=== PATIENT | male | born 1955 | race Caucasian/White ===

== ENCOUNTER 2020-06-19 07:20 | Emergency (ER) | payer BC, SELFPAY ==
[2020-06-19] VITALS (9 sets, daily range): BP systolic 126–171; BP diastolic 70–96; PULSE 61–69; RESP 18; TEMP 36.3; O2SAT 96–99
--- NOTE | ~2020-06-19 | CT_ITS ---
EXAMINATION: CT abdomen pelvis w con DATE: 06/19/2020 09:18 INDICATION: Abdominal pain and vomiting. One day after prostate biopsy. TECHNIQUE: Computed tomography (CT) of the abdomen and pelvis was performed with 100 mL Omnipaque 350 intravenous contrast. Automated exposure control and iterative reconstruction technique were employe d. The dose-length product was 351.91 mGy-cm. COMPARISON: None. FINDINGS: The visualized portions of the lung bases demonstrate minimal atelectasis. A calcified righ t lung nodule is consistent with old granulomatous disease. No pleural effusion. The heart size is no rmal. No pericardial effusion. There is a small sliding hiatal hernia. The liver, gallbladder, spleen , pancreas, and right adrenal gland are normal. There is a 1.4 cm mass in left adrenal gland measurin g soft tissue attenuation. There are cysts in the kidneys measuring up to 1.7 cm on the left. There a re two 2 mm stones in right kidney. There is a 3 mm stone in left kidney. The prostate is moderately enlarged. There is a small left inguinal hernia containing fat. There is calcified old fat necrosis a djacent to sigmoid colon. There are no dilated loops of bowel. The appendix is normal. There are no p athologically enlarged lymph nodes. There is no free intraperitoneal fluid. There is severe thoracolu mbar spondylosis. IMPRESSION: 1. Small sliding hiatal hernia. 2. 1.4 cm left adrenal mass. In the absence of known malignancy, this finding is likely an adenoma. 3. Small bilateral nonobstructing kidney stones. 4. Small left inguinal hernia containing fat. Reviewed, dictated and finalized at location B. IMPRESSION: 1. Small sliding hiatal hernia. 2. 1.4 cm left adrenal mass. In the absence of known malignancy, this finding i s likely an adenoma. 3. Small bilateral nonobstructing kidney stones. 4. Small left inguinal hernia containing fat.
--- NOTE | 2020-06-19 07:48 | ED.NAVMDI ---
HPI - Nausea/Vomiting/Diarrhea General Chief complaint: Nausea/Vomiting/Diarrhea Stated complaint: nausea,vomiting, chills Time Seen by Provider: 06/19/20 07:48 Source: patient and family Mode of arrival: ambulatory Limitations: no limitations History of Present Illness HPI Narrative: Patient is a 64-year-old male who presents for evaluation of intractable nausea and vomiting. Patient states he had a prostate biopsy yesterday with Dr. Tsai' office, after the procedure, patient started to experience nausea and vomiting on the way home. Patient denying any dysuria or hematuria. Patient was awake for the procedure was done with a rectal approach, patient was given a shot of antibiotic intramuscularly, but denies any other medications. No rash at the site of injection. No fever or chills. Patient reports crampy abdominal pain. He denies any diarrhea. Patient states he has been unable to tolerate any oral intake in the past 20 hours. He denies any weakness, numbness, vision changes. No chest pain, cough or shortness of breath. He denies any other medications. Related Data Allergies Allergy/AdvReac Type Severity Reaction Status Date / Time No Known Allergies Allergy Verified 06/19/20 07:28 Review of Systems Review of Systems: Narrative: CONSTITUTIONAL: Denies fever, chills, or sweats. EYES: Denies visual changes, redness, or discharge. ENT: Denies rhinorrhea, congestion, sore throat, or otalgia. CARDIOVASCULAR: Denies chest pain, palpitations, or edema. RESPIRATORY: Denies cough or dyspnea. GASTROINTESTINAL: Reports abdominal pain, nausea and vomiting GENITOURINARY: Denies dysuria or hematuria. SKIN: Denies rash or itching. MUSCULOSKELETAL: Denies back pain, joint pain, or myalgia. NEUROLOGIC: Denies headache, numbness, or weakness. [facility] [place] Social History Social History Gender identity (if verbalized by the patient): Male Course Vital Signs Vital signs: Vital Signs Temperature 36.3 C L 06/19/20 07:25 Pulse Rate 61 06/19/20 07:25 Respiratory Rate 18 06/19/20 07:25 Blood Pressure 147/76 H 06/19/20 07:25 Pulse Oximetry 98 06/19/20 07:25 Temperature 36.3 C L 06/19/20 07:25 Pulse Rate 69 06/19/20 08:25 Respiratory Rate 18 06/19/20 07:25 Blood Pressure 129/70 06/19/20 11:02 Pulse Oximetry 99 06/19/20 11:02 MDM - Nausea/Vomiting/Diarrhea MDM Narrative Medical decision making narrative: Patient presented for evaluation of nausea and vomiting. The time of assessment, ABCs are intact and vital signs are stable. Laboratory results show mild leukocytosis which may be seen in acute stress reaction from the patient's emesis. No anemia. Mild hypokalemia. Patient was given Zofran, Reglan, IV fluids and had much improvement in his symptoms. He had a CT scan which did not show any acute infectious etiologies or obstruction. I spoke with the urologist office, [place], at this point I do not feel like the intramuscular Rocephin he got prior to the procedure would be causing the vomiting. Patient not having any evidence of urinary tract infection or findings of prostatitis. There is blood on UA post procedure which is expected at this point. Patient and family made aware of left adrenal adenoma which will require monitoring. Otherwise, patient was able to p.o. challenge without recurrent emesis. He states he feels well without other symptoms. Vital signs remained stable. Patient was able to be discharged home with antiemetic advised to return should his symptoms change or recur. Differential Diagnosis Differential diagnosis: Likely food poisoning, gastroenteritis, drug-induced nausea and vomiting and dehydration Medical Records Attestation: I reviewed the patient's medical records. Lab Data Attestation: I reviewed the patient's lab results. Result diagrams: 06/19/20 07:52 06/19/20 07:52 Labs: Lab Results 06/19/20 06/19/20 06/19/20 Range/Units 07:52 07:52 08:1
[2020-06-19 07:58] LABS: Basophils Percent Auto 0.1 % (0.2-1.2); Eosinophils Percent Auto 0.1 % (0-4.4); Hematocrit 45.6 % (42.0-52.0); Hemoglobin 16.1 g/dL (14.0-18.0); Immature Granulocyte Absolute 0.05 K/mm3 (0.00-0.031); Immature Granulocyte Percent A 0.3 % (0-0.5); Lymphocytes Absolute Auto 0.71 K/mm3 (0.9-3.2); Lymphocytes Percent Auto 4.4 % (18.3-44.2); Mean Corpuscular HGB Conc 35.3 g/dl (32-36); Mean Corpuscular Hemoglobin 31.1 pg (26-34); Mean Platelet Volume 10.4 fl (7.4-10.4); Monocytes Absolute Auto 1.5 K/mm3 (0.1-0.6); Monocytes Percent Auto 9.4 % (2.6-8.5); Neutrophils Absolute Auto 13.8 K/mm3 (1.3-6.7); Neutrophils Percent Auto 85.7 % (45.5-73.1); Platelet Count Result 300 k/mm3 (150-375); Red Blood Count 5.18 M/mm3 (4.6-6.20); Red Cell Distribution Width 13.5 % (11.5-14.5)
[2020-06-19 08:08] LABS: Alanine Aminotransferase 20 U/L (4-50); Albumin Level 4.9 g/dL (3.5-5.1); Alkaline Phosphatase 69 U/L (38-126); Anion Gap 11 mmol/L (8-16); Aspartate Amino Transferase 30 U/L (17-59); Bilirubin,Total 1.1 mg/dL (0.2-1.3); Blood Urea Nitrogen 25 mg/dL (9-20); Calcium 9.7 mg/dL (8.4-10.2); Carbon Dioxide 28 mmol/L (22-30); Chloride 98 mmol/L (98-107); Estimated CRCL calculation 74 ml/min; Estimated Glomerular Filt Rate > 60; Glucose 133 mg/dL (75-110); Lipase 61 U/L (23-300); Potassium 3.1 mmol/L (3.4-5.0); Sodium 137 mmol/L (137-145)
[2020-06-19 08:26] LABS: Add Urine Microscopic? YES; Appearance Urine Cloudy (Clear); Bilirubin Urine Negative (Negative); Blood Urine 1+ (Negative); Color Urine Yellow (Yellow); Glucose Urine UA Negative (Negative); Ketones Urine Trace mg/dL (Negative); Leukocyte Esterase Ur Negative LEU/UL (Negative); Mucus Urine Few /lpf; Nitrate Urine Negative (Negative); Protein Urine 2+ mg/dL (Negative); Specific Grav Ur 1.027 (1.001-1.035); Urobilinogen Urine Negative mg/dL (<2.0)
[2020-06-19] MEDS: SODIUM CHLORIDE 0.9% IV 1,000 ML 999 ML IV CONT (08:27)
[2020-06-19] MEDS: ONDANSETRON INJ 4 MG/2 ML VIAL IV PUSH (08:27)
--- NOTE | 2020-06-19 09:02 | PC.NURSE ---
Pt having emesis. Dr. Weaver made aware.
[2020-06-19] MEDS: METOCLOPRAMIDE HCL INJ 10 MG/2 ML VIAL IV PUSH (09:08)
--- NOTE | 2020-06-19 09:08 | PC.NURSE ---
Pt anxious, I need water!! , asking multiple staff members for water. Explained to patient multiple times that because of nausea he will have emesis. Also made aware of pending CT. Pt given reglan IVP and then to CT via stretcher.
[2020-06-19] MEDS: DEXTROSE 5%/0.45% SOD CHL 1,000 ML 100 ML IV CONT (10:11)
[2020-06-19] MEDS: POTASSIUM CHLORIDE 20 MEQ PACKET (FOR LIQUID) 40 MEQ PO (11:48)
== END 2020-06-19 11:55 | disposition home or self-care (01) ==
PROVIDERS: Emergency Provider Emergency Medicine; PCP Internal Medicine
DX: E86.0 Dehydration (principal); R11.2 Nausea with vomiting, unspecified; K44.9 Diaphragmatic hernia without obstruction or gangrene; K40.90 Unilateral inguinal hernia, without obstruction or gangrene, not specified as recurrent
CPT/HCPCS: 36415; 74177; 80053; 81001; 83690; 85025; 96361; 96365; 96375; 99284; A9270; J0131; J2405; J2765; J7030; Q9967

== ENCOUNTER 2020-08-08 11:45 | Outpatient (CLI) | payer BC, SELFPAY ==
--- NOTE | ~2020-08-08 | XR_ITS ---
EXAMINATION: XR chest 2V DATE: 08/08/2020 12:53 INDICATION: Malignant neoplasm of prostate. TECHNIQUE: Frontal and lateral views of the chest were obtained. COMPARISON: CT abdomen and pelvis 06/19/2020 FINDINGS: The chest demonstrates clear lungs without pneumonia, pleural effusion, or pneumothorax. Th e heart size is normal. IMPRESSION: 1. No acute cardiopulmonary disease. Reviewed, dictated and finalized at location A.
--- NOTE | 2020-08-08 12:26 | ECG_ITS ---
Measurements Intervals [place] Rate: 60 P: 49 NV: 140 QRS: -43 QRSD: 102 T: 42 QT: 396 QTc: 397 Interpretive Statements SINUS RHYTHM ATRIAL PREMATURE COMPLEXES LEFT AXIS DEVIATION INCOMPLETE RIGHT BUNDLE BRANCH BLOCK BORDERLINE R WAVE PROGRESSION, ANTERIOR LEADS BASELINE ARTIFACT- I, II, III, AVR, AVL, AVF BORDERLINE ECG Electronically Signed On 08-08-2020 13:11:04 CDT by Dwayne Em D.O.
[2020-08-08 12:57] LABS: Basophils Percent Auto 0.3 % (0.2-1.2); Eosinophils Absolute Auto 0.1 K/mm3 (0-0.3); Eosinophils Percent Auto 0.7 % (0-4.4); Hematocrit 46.5 % (42.0-52.0); Hemoglobin 15.4 g/dL (14.0-18.0); Immature Granulocyte Absolute 0.05 K/mm3 (0.00-0.031); Immature Granulocyte Percent A 0.5 % (0-0.5); Lymphocytes Absolute Auto 1.36 K/mm3 (0.9-3.2); Lymphocytes Percent Auto 13.6 % (18.3-44.2); Mean Corpuscular HGB Conc 33.1 g/dl (32-36); Mean Corpuscular Hemoglobin 30.6 pg (26-34); Mean Corpuscular Volume 92.3 fl (80-100); Monocytes Absolute Auto 0.9 K/mm3 (0.1-0.6); Monocytes Percent Auto 9.1 % (2.6-8.5); Neutrophils Absolute Auto 7.6 K/mm3 (1.3-6.7); Neutrophils Percent Auto 75.8 % (45.5-73.1); Platelet Count Result 295 k/mm3 (150-375); Red Blood Count 5.04 M/mm3 (4.6-6.20); Red Cell Distribution Width 14.1 % (11.5-14.5)
[2020-08-08 13:10] LABS: Add Urine Microscopic? YES; Alanine Aminotransferase 17 U/L (4-50); Albumin Level 4.5 g/dL (3.5-5.1); Alkaline Phosphatase 61 U/L (38-126); Anion Gap 9 mmol/L (8-16); Appearance Urine Clear (Clear); Aspartate Amino Transferase 24 U/L (17-59); Bilirubin Urine Negative (Negative); Bilirubin,Total 0.7 mg/dL (0.2-1.3); Blood Urea Nitrogen 21 mg/dL (9-20); Blood Urine Negative (Negative); Calcium 9.8 mg/dL (8.4-10.2); Carbon Dioxide 29 mmol/L (22-30); Chloride 101 mmol/L (98-107); Color Urine Yellow (Yellow); Estimated Glomerular Filt Rate > 60; Glucose 94 mg/dL (75-110); Glucose Urine UA Negative (Negative); Ketones Urine Trace mg/dL (Negative); Leukocyte Esterase Ur Negative LEU/UL (Negative); Mucus Urine Rare /lpf; Nitrate Urine Negative (Negative); Potassium 3.7 mmol/L (3.4-5.0); Protein Urine 1+ mg/dL (Negative); RBC Urine 0-2 /hpf (0-2); Sodium 139 mmol/L (137-145); Specific Grav Ur 1.028 (1.001-1.035); Squamous Epithelial Cell Urine Rare /hpf (Few); Urobilinogen Urine Negative mg/dL (<2.0)
[2020-08-08 13:11] LABS: INR 0.9; Prothrombin Time 13.1 Seconds (11.1-14.7)
[2020-08-08 13:15] LABS: Partial Thromboplastin Time 29.2 SECONDS (22.3-36.8)
== END 2020-08-08 11:46 | disposition home or self-care (01) ==
LOC: ANHSURGERY 11:49
PROVIDERS: PCP Internal Medicine; Visit Provider Urology
DX: Z01.818 Encounter for other preprocedural examination (principal); C61 Malignant neoplasm of prostate; I45.10 Unspecified right bundle-branch block
CPT/HCPCS: 36415; 71046; 80053; 81001; 85025; 85610; 85730; 86850; 86900; 86901; 93005

== ENCOUNTER → 2020-08-13 02:45 | Outpatient (CLI) | payer BC, SELFPAY ==
[2020-08-13 17:43] LABS: SARS-CoV-2 RNA PCR Negative
== END ==
PROVIDERS: PCP Internal Medicine; Visit Provider Urology
DX: Z01.812 Encounter for preprocedural laboratory examination (principal); Z20.822 Contact with and (suspected) exposure to COVID-19
CPT/HCPCS: C9803; U0003; U0005

== ENCOUNTER 2020-08-16 00:21 | Day surgery (SDC) | payer BC, SELFPAY ==
--- NOTE | 2020-08-06 08:03 | P.HP_ITS ---
H&P: HPI History of Present Illness Date/Time: 08/06/20 08:03 within 64-year-old male recently [place] with a PSA of 4.8. Prostate ultrasound and biopsy showed 5 of 8 cores with Michael adenocarcinoma 3+3=6. He has preoperative erectile dysfunction that has been refractory to sildenafil into the Elavil. His prostate ultrasound and biopsy revealed a volume of 42.1 g. He is aware of the risk of this procedure including, but not limited to, adverse cardiopulmonary events urinary incontinence, worsening of his erectile dysfunction, rectal injury and persisting carcinoma. Chief Complaint: Prostate cancer [facility] Social History Social History Gender identity (if verbalized by the patient): Male Meds Home Medications and Allergies Home Medications Medication Instructions Recorded Confirmed Type metoclopramide HCl [Reglan] 10 mg PO Q6H PRN #14 tablet 06/19/20 Rx ondansetron 4 mg PO Q8H PRN 7 Days #20 tablet 06/19/20 Rx Allergies Allergy/AdvReac Type Severity Reaction Status Date / Time No Known Allergies Allergy Verified 06/19/20 07:28 Exam Const: General: no acute distress Resp: Effort & Inspection: normal respiratory effort GI: Inspection: non-distended GI Palp: No abdominal tenderness and No Guarding due to palpation present (GI) Auscultation: normal bowel sounds Assessment and Plan Assessment and plan (1) Prostate cancer: Code(s): C61 - Malignant neoplasm of prostate Status: Acute Assessment and Plan: * Robotic prostatectomy with bilateral pelvic lymphadenectomy
[2020-08-08 12:03] VITALS: BP 130/86; PULSE 68; RESP 20; TEMP 37.2; O2SAT 96; BMI 24.4
[2020-08-16] VITALS (13 sets, daily range): BP systolic 125–145; BP diastolic 71–85; PULSE 60–87; RESP 16–24; TEMP 36–36.6; O2SAT 96–100; BMI 23.5
--- NOTE | 2020-08-16 06:13 | WPDHPUPDATE1 ---
History and Physical Update Update Date/Time: 08/16/20 06:13 History and Physical has been reviewed, including an updated exam of the patient. There are NO changes in the patient's condition. Risks, benefits, and alternatives have been discussed and questions answered. Patient agrees to proceed with procedure.
--- NOTE | 2020-08-16 07:00 | P.PNAN_ITS ---
Anes - Initial Pre Proc Eval Procedure: Operation Date: 08/16/20 07:30 Proposed Procedures p Robotic Assisted Laparoscopic Prostatectomy With Bilateral Pelvic Lymph Node Dissection - Rolando Santana MD Date/Time: 08/16/20 07:00 Surgeon: Rolando Santana MD Pre Op Diagnosis: prostate CA Patient Data Age: 64 Gender: M Height: 5 ft 10 in Weight: 77.2 kg Last Vital Signs Temp 99.0 F 08/08/20 12:03 Pulse 68 08/08/20 12:03 Resp 20 08/08/20 12:03 BP 130/86 08/08/20 12:03 Pulse Ox 96 08/08/20 12:03 Allergies Allergy/AdvReac Type Severity Reaction Status Date / Time ceftriaxone AdvReac Nausea and Verified 08/16/20 06:53 Vomiting-SEVERE Home Medications Medication Instructions Recorded Confirmed Type aspirin [Aspir-81] 81 mg PO QAM 08/08/20 08/16/20 History lisinopril-hydrochlorothiazide 1 tablet QAM 08/08/20 08/08/20 History Patient hx anesthesia problems: none Family hx anesthesia problems: none [facility] Past Medical History Medical History (Updated 08/16/20 @ 07:00 by Jermaine Rock MD) DVT (deep venous thrombosis) 02/17 Hypertension Prostate cancer Social History Social History Smoking status: Never smoker Second hand tobacco smoke exposure: No Alcohol intake: current Drinks per week: 3 Substance use: never Substance use type: does not use Living arrangements: with family Gender identity (if verbalized by the patient): Male Spiritual care concerns: No Anes - Eval Final PreProcedure Day of Procedure 08/16/20 07:00 Patient weight: overweight Heart: regular rate and rhythm Lungs: clear to auscultation Airway: Mallampati scale class III Neurological: alert and oriented Last oral intake: >/= 8 hours ASA classification: III Emergent: no Anesthetic plan: proceed Anesthesia type and monitoring: general ETT and standard monitoring Informed Consent: The patient's anesthetic plan and its attendant risks and benefits were discussed with the patient/family/POA. Questions were solicited and answers provided to the satisfaction of the patient/family/POA.
[2020-08-16] MEDS: LACTATED RINGERS 1,000 ML 30 ML IV CONT ×3 (07:18→12:15)
[2020-08-16] MEDS: ceFAZolin 2 GM/D5W 50 ML 2 GM/50 ML BAG IVPB (07:20)
--- NOTE | 2020-08-16 11:09 | W.PM.PROC2 ---
Procedure Note - Detailed Date of Procedure 08/16/20 Pre-op Diagnosis Prostate CA Post-op Diagnosis same Procedure Performed Robotic assisted laparoscopic prostatectomy with bilateral pelvic lymphadenectomy Surgeon Rolando Santana MD Litigation Manager DENILSON Serrano Anesthesia general Indications Prosate cancer Findings No gross extraprostatic disease Description of Procedure The patient was brought to the operative suite, where he was prepped and draped in routine sterile fashion while in a dorsal lithotomy, deep Trendelenburg position. A supraumbilical 10 mm trocar was placed after insufflation of the abdomen with a Veress needle. Three robotic ports were then placed under direct vision. Two of these were placed in the right lower quadrant - 10 cm and 20 cm lateral to, and in line with, the umbilicus. A third robotic trocar was placed 10 cm to the left of the umbilicus, and 20 cm to the left of the umbilicus, a 12 mm standard laparoscopic trocar was placed to be used as an assistant professor of mathematics port. Lastly, a 5 mm trocar was placed in the left upper quadrant midway between the umbilicus and the left robotic trocar. Attention was then turned to the prostatectomy. I opted for a posterior approach in this patient. An incision was made in the parietal peritoneum along the posterior bladder/posterior prostate about 2 cm above the reflection of the peritoneum over the anterior rectum. The seminal vesicles and vas deferens were immediately identified. Dissection is undertaken in a fashion so as to avoid electrocautery as much as possible, particularly near the tips of the seminal vesicles. Dissection was also carried out in the midline so as to avoid any encounters with the ureters. The vas deferens and the seminal vesicles were dissected in their entirety to the base of the prostate. The plane anterior to Denoviller's fascia, anterior to the rectum and posterior to the prostate was then developed. I then dropped the bladder by incising the anterior parietal peritoneum just lateral to the median umbilical ligaments bilaterally. The bladder was dropped from the anterior abdominal and pelvic wall. The endopelvic fascia was identified and incised bilaterally, allowing for dissection of the posterior-lateral aspect of the prostate. The puboprostatic ligaments were transected near their origin from the posterior pubic ramus. This posterior lateral dissection of the prostate is also undertaken in a fashion so as to avoid electrocautery as much as possible. The dorsal vein of the penis is then secured with an 0 -Vicryl ligature. Attention is then turned to the bladder neck. The anterior bladder neck is incised at the vesico-prostatic junction. The previously placed urethral catheter was drawn through the urethrotomy. A very small bladder neck was maintained throughout the remainder of this dissection. The posterior bladder neck was incised in a fashion so as to avoid any injury to the ureteral orifices. Again, the small aperture of the bladder neck was maintained. The previously dissected vas deferens and the seminal vesicles were brought through the posterior bladder neck incision. The lateral prostatic pedicles were then carefully dissected from the lateral aspect of the prostate bilaterally. The prostatic pedicles were secured with Weck clips and transected. The neurovascular bundles were carefully dissected from the posterior-lateral aspect of the prostate. The dorsal vein of the penis was incised with electrocautery. Using cold scissors, the urethra was incised. After withdrawing the previously placed urethral catheter, the posterior urethra was sharply incised, as was the rectalurethralis muscle. Attention was then turned to a bilateral pelvic lymphadenectomy. The limits of this dissection were similar bilaterally. Specifically, the limits were the bifurcation of the common iliac vein proximally, the inguinal ligament distally, the obturator nerve posterior
[2020-08-16] MEDS: fentaNYL CITRATE INJ (*CRX) 100 MCG/2 ML VIAL 25 MCG IV PUSH ×3 (11:44→12:13)
--- NOTE | 2020-08-16 12:50 | ADMGEN ---
This patient, Mayito Shepherd, was admitted to Medical Room 241-. Patient/family oriented to hospital policies and general routines including ID bracelet, bed and alarms, visiting hours, pain management, procedures, bathroom and other care routines, personal items, smoking policy, room service/diet, and visiting hours. Information on how to activate the Rapid Response Team has been discussed. Patient/Family are encouraged to report perceived risks to care and to ask questions if they do not understand what they are told or what they should do.
[2020-08-16] MEDS: LACTATED RINGERS 1,000 ML 125 ML IV CONT ×2 (13:25→21:48)
[2020-08-16] MEDS: lisinopriL 20 MG TABLET PO (14:49)
[2020-08-16] MEDS: KETOROLAC 30 MG/ML VIAL (*BKC) IV PUSH (14:52)
--- NOTE | 2020-08-16 16:09 | WPDANESEPPF ---
Anes - Initial Pre Proc Eval Procedure: Operation Date: 08/16/20 07:30 Proposed Procedures p Robotic Assisted Laparoscopic Prostatectomy With Bilateral Pelvic Lymph Node Dissection - Rolando Santana MD Date/Time: 08/16/20 16:09 Surgeon: Rolando Santana MD Pre Op Diagnosis: prostate CA Patient Data Age: 64 Gender: M Height: 1.78 m Weight: 74.4 kg Last Vital Signs Temp 36.2 C L 08/16/20 14:35 Pulse 68 08/16/20 14:35 Resp 16 08/16/20 14:35 BP 132/78 08/16/20 14:35 Pulse Ox 100 08/16/20 14:35 Allergies Allergy/AdvReac Type Severity Reaction Status Date / Time ceftriaxone AdvReac Severe Nausea and Verified 08/16/20 13:29 Vomiting-SEVERE Home Medications Medication Instructions Recorded Confirmed Type aspirin [Aspir-81] 81 mg PO QAM 08/08/20 08/16/20 History lisinopril-hydrochlorothiazide 1 tablet QAM 08/08/20 08/16/20 History Patient hx anesthesia problems: none Family hx anesthesia problems: none PMFSH Past Medical History Medical History (Updated 08/16/20 @ 07:00 by Jermaine Rock MD) DVT (deep venous thrombosis) 02/17 Hypertension Prostate cancer Social History Social History Smoking packs per day: 1 Smoking cigarettes per day: 20.0 Years smoked: 9 Smoking pack-years: 9.00 Smoking status: Former smoker Second hand tobacco smoke exposure: No Alcohol intake: current Drinks per week: 2 Substance use: never Substance use type: does not use Living arrangements: with family Gender identity (if verbalized by the patient): Male Spiritual care concerns: No Anes - Eval Final PreProcedure Day of Procedure 08/16/20 16:09 Patient weight: normal Heart: regular rate and rhythm Lungs: clear to auscultation and normal air movement Airway: Mallampati scale class II Neurological: alert and oriented Last oral intake: >/= 8 hours ASA classification: III Emergent: no Anesthetic plan: proceed Anesthesia type and monitoring: general ETT Informed Consent: The patient's anesthetic plan and its attendant risks and benefits were discussed with the patient/family/POA. Questions were solicited and answers provided to the satisfaction of the patient/family/POA.
[2020-08-17 02:17] VITALS: BP 126/72; PULSE 66; RESP 16; TEMP 36.2; O2SAT 98
[2020-08-17 05:50] LABS: Hematocrit 38.5 % (42.0-52.0); Hemoglobin 12.7 g/dL (14.0-18.0)
[2020-08-17 06:02] VITALS: BP 130/79; PULSE 65; RESP 16; TEMP 36.6; O2SAT 97
[2020-08-17] MEDS: LACTATED RINGERS 1,000 ML 125 ML IV CONT (06:18)
[2020-08-17 06:23] LABS: Anion Gap 6 mmol/L (8-16); Blood Urea Nitrogen 15 mg/dL (9-20); Calcium 8.3 mg/dL (8.4-10.2); Carbon Dioxide 26 mmol/L (22-30); Chloride 105 mmol/L (98-107); Estimated CRCL calculation 86 ml/min; Estimated Glomerular Filt Rate > 60; Glucose 93 mg/dL (75-110); Potassium 3.6 mmol/L (3.4-5.0); Sodium 137 mmol/L (137-145)
[2020-08-17] MEDS: KETOROLAC 30 MG/ML VIAL (*BKC) IV PUSH (08:11)
[2020-08-17] MEDS: levoFLOXacin 500 MG TABLET PO (08:12)
[2020-08-17] MEDS: hydroCHLOROthiazide 25 MG TABLET PO (08:12)
[2020-08-17] MEDS: lisinopriL 20 MG TABLET PO (08:12)
--- NOTE | 2020-08-17 09:29 | WPDUROPN2 ---
Progress Note: A&P Assessment and Plan (1) Prostate cancer: Code(s): C61 - Malignant neoplasm of prostate Status: Acute Assessment and Plan: Doing well POD #1 TURP. Increase diet/activity. Anticipate discharge this afternoon. Subjective Subjective Date/Time Seen: 08/17/20 09:29 Comfortable, tolerating diet Review of Systems Cardiovascular: Cardiovascular: Denies chest pain, Denies lightheadedness, Denies palpitations and Denies dyspnea Respiratory: Respiratory: Denies dyspnea Gastrointestinal: Gastrointestinal: Denies diarrhea, Denies nausea and Denies vomiting Genitourinary: Genitourinary: Denies hematuria and Denies dysuria Endocrine: Endocrine: Denies palpitations Exam Const: General: no acute distress Resp: Effort & Inspection: normal respiratory effort GI: Inspection: non-distended GI Palp: No abdominal tenderness and No Guarding due to palpation present (GI) Auscultation: normal bowel sounds Urinary Catheter: Urinary Catheter: patent and draining and urine clear Objective Data Vital Signs Vital Signs: Vital Signs - 24 hr 08/16/20 11:26 08/16/20 11:30 08/16/20 11:45 Temperature 98 F Pulse Rate 87 66 65 Respiratory Rate 22 H 24 H 20 Blood Pressure 142/81 H 142/85 H 133/75 Pulse Oximetry 100 100 96 08/16/20 12:00 08/16/20 12:15 08/16/20 12:27 Temperature Pulse Rate 60 61 63 Respiratory Rate 20 20 17 Blood Pressure 145/72 H 137/71 134/80 Pulse Oximetry 96 100 97 08/16/20 12:50 08/16/20 13:05 08/16/20 13:35 Temperature 97.0 F L 96.8 F L 97.1 F L Pulse Rate 63 61 66 Respiratory Rate 16 16 16 Blood Pressure 139/79 134/74 128/73 Pulse Oximetry 97 96 97 08/16/20 14:35 08/16/20 18:17 08/16/20 21:31 Temperature 97.1 F L 97.2 F L 97.8 F Pulse Rate 68 68 73 Respiratory Rate 16 16 16 Blood Pressure 132/78 130/74 125/79 Pulse Oximetry 100 100 97 08/17/20 02:17 08/17/20 06:02 Temperature 97.2 F L 97.8 F Pulse Rate 66 65 Respiratory Rate 16 16 Blood Pressure 126/72 130/79 Pulse Oximetry 98 97 Intake/Output Intake/Output: Intake & Output 08/14/20 08/15/20 08/16/20 08/17/20 23:59 23:59 23:59 23:59 Intake Total 2960 1600 Output Total 500 500 Balance 2460 1100 Meds/Results Medications: Active Medications Generic Name Dose Route Start Last Admin Trade Name Freq PRN Reason Stop Dose Admin Hydrochlorothiazide 25 mg 08/17/20 09:00 08/17/20 08:12 Hydrochlorothiazide 25 Mg Tablet PO 25 mg QAM JEFFERSON Administration Hyoscyamine 0.125 mg 08/16/20 12:32 Hyoscyamine Sulfate 0.125 Mg Tablet SUBLINGUAL Q4H PRN Bladder Spasm Lactated Ringer's 1,000 mls @ 125 mls/hr 08/16/20 12:32 08/17/20 06:18 Lr - Lactated Ringers Iv IV CONT 125 mls/hr .Q8H JEFFERSON Administration Acetaminophen 1,000 mg in 100 mls @ 400 mls/hr 08/16/20 13:00 08/17/20 07:00 Ofirmev 1,000 Mg Ivpb IVPB 08/17/20 13:01 Infused Q6H JEFFERSON Infusion Ketorolac Tromethamine 30 mg 08/16/20 12:32 08/17/20 08:11 Ketorolac 30 Mg/Ml Vial (*Bkc) IV PUSH 08/17/20 12:33 30 mg Q6H PRN Administration Pain Rated 4-6 Levofloxacin 500 mg 08/17/20 09:00 08/17/20 08:12 Levofloxacin 500 Mg Tablet PO 500 mg DAILY JEFFERSON Administration Lisinopril 20 mg 08/16/20 13:15 08/17/20 08:12 Lisinopril 20 Mg Tablet PO 20 mg QAM JEFFERSON Administration Naloxone HCl 0.1 mg 08/16/20 12:32 Naloxone Hcl 0.4 Mg/Ml Vial IV PUSH Q2M PRN Opiate Reversal Labs Labs: Laboratory Results - last 24 hr 08/17/20 08/17/20 05:19 05:19 Hgb 12.7 L Hct 38.5 L Sodium 137 Potassium 3.6 Chloride 105 Carbon Dioxide 26 Anion Gap 6 L BUN 15 D Creatinine 0.80 Estim Creat Clear Calc 86 Estimated GFR > 60 Glucose 93 Calcium 8.3 L
[2020-08-17 10:17] VITALS: BP 119/76; PULSE 78; RESP 16; TEMP 36.7; O2SAT 96
--- NOTE | 2020-08-17 13:49 | PM.DS ---
DS: Admitting Diagnosis Admitting Diagnosis Admitting Diagnosis: Prostate cancer DS: Summary Hospital Course Hospital Course: This patient was admitted on the morning of his planned robotic prostatectomy. This procedure was uneventful, as was his postoperative course. By the evening of the procedure he was sitting at the bedside in tolerating a liquid diet. The following morning he was ambulating freely and tolerating regular food. His catheter drainage remained essentially clear throughout. His postoperative hemoglobin and serum creatinine were unremarkable. At the time of discharge he has been instructed in appropriate care for his Cespedes catheter with both a leg bag and bedside bag. He will be discharged with plans to follow-up in 1 week with a cystogram. Time Spent with Patient Time attestation: Total time spent providing and/or coordinating discharge services: DS: Data Data Completed and Pending Pending studies at discharge: Pending at discharge 08/16/20 10:19 Surgical [PTH] Routine Surgical [PTH] Routine Labs on day of discharge: Labs from last 24 hours 08/17/20 08/17/20 05:19 05:19 Hgb 12.7 L Hct 38.5 L Sodium 137 Potassium 3.6 Chloride 105 Carbon Dioxide 26 Anion Gap 6 L BUN 15 D Creatinine 0.80 Estim Creat Clear Calc 86 Estimated GFR > 60 Glucose 93 Calcium 8.3 L Discharge Plan Discharge Patient Disposition: Home, Self-Care Discharge Instructions: 1) Cespedes catheter -> leg bag / bedside bag at night. 2) No lifting/straining >15lbs. x3 weeks. 3) No driving x1-week. 4) Resume normal, pre-operative diet. 5) My office will contact regarding follow-up in 1-week with cystogram. Stand Alone Forms: General Discharge Instructions Discharge Orders: Discharge Order (Routine); Ordered 08/17/20 Ordered By: Rolando Santana Discharge Medications: New ciprofloxacin HCl 500 mg tablet 500 mg PO Q12H Qty: 10 RF: 0 docusate sodium [Colace] 100 mg capsule 100 mg PO DAILY Qty: 30 RF: 0 hydrocodone-acetaminophen 5-325 mg tablet 1 - 2 tablet PO Q6H PRN (Reason: pain) Qty: 20 RF: 0 hyoscyamine sulfate 0.125 mg tablet 0.125 mg PO Q6H PRN (Reason: bladder spasms) Qty: 20 RF: 2 Continued lisinopril-hydrochlorothiazide 20-25 mg tablet 1 tablet QAM RF: 0 Held aspirin 81 mg Tablet,Delayed Release (Dr/Ec) 81 mg PO QAM RF: 0 Hold Instructions: Resume on 08/22/20.
== END 2020-08-17 15:32 | disposition home or self-care (01) ==
LOC: ANHSURGERY 13:01 → ANH2MED 13:09
PROVIDERS: PCP Internal Medicine; Visit Provider Urology
PROC: 0VT04ZZ Resection of Prostate, Percutaneous Endoscopic Approach (ICD-10-PCS; CPT 55867; principal; 2020-08-16 07:30)
DX: C61 Malignant neoplasm of prostate (principal); Z79.82 Long term (current) use of aspirin; Z86.718 Personal history of other venous thrombosis and embolism; I10 Essential (primary) hypertension
CPT/HCPCS: 55866; 38571; S2900; 36415; 80048; 85014; 85018; 88305; 88307; 88309; A9270; J0131; J0690; J1100; J1170; J1885; J2250; J2405; J2704; J2710; J3010; J7030; J7120; Q9968

== ENCOUNTER 2020-08-24 10:42 | Outpatient (CLI) | payer BC, SELFPAY ==
--- NOTE | ~2020-08-24 | XR_ITS ---
EXAMINATION: XR cystogram DATE: 08/24/2020 11:41 INDICATION: Prostate cancer status post surgery on 08/16/2020 TECHNIQUE: Water-soluble contrast was gravity-infused through the patient's Cespedes catheter. Multiple fluoroscopic images were obtained. Fluoroscopy exposure time was 1.3 minutes. Supine conventional sco ut radiograph and a postevacuation radiograph are also obtained. The DAP for this procedure was 13.25 6 Gycm2. COMPARISON: None. FINDINGS: The bladder contour is normal. No contrast leak is identified. 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 IMPRESSION: 1. No contrast leak identified. Reviewed, dictated and finalized at location A.
== END 2020-08-24 10:43 | disposition home or self-care (01) ==
PROVIDERS: PCP Internal Medicine; Visit Provider Urology
DX: C61 Malignant neoplasm of prostate (principal)
CPT/HCPCS: 51600; 74430; Q9967